=== PATIENT | female | born 1985 | race Caucasian/White ===

== ENCOUNTER 2016-08-19 10:15 | Day surgery (SDC) | payer OTHER ==
[2016-08-19] MEDS ORDERED: DEXAMETHASONE SOD PHOS INJ 10 MG/1 ML VIAL ONE (11:30)
[2016-08-19] MEDS ORDERED: ONDANSETRON HCL INJ/PF 4 MG/2 ML SDV ONE (11:30)
[2016-08-19] MEDS ORDERED: FENTANYL CITRATE INJ/PF 100 MCG/2 ML AMPUL ONE ×2 (11:30)
[2016-08-19] MEDS ORDERED: MIDAZOLAM 2 MG/2 ML INJ ONE (11:30)
[2016-08-19] MEDS ORDERED: CARBOXYMETHYLCELLULOSE SOD 0.5% 0.4 ML DROPERETTE ONE (11:30)
[2016-08-19] MEDS ORDERED: LIDOCAINE 2% INJ-PF (20 MG/ML) 10 ML AMPUL ONE (11:30)
[2016-08-19] MEDS ORDERED: ROCURONIUM BROMIDE INJ 50 MG/5 ML VIAL IV ONE (11:31)
[2016-08-19] MEDS ORDERED: PROPOFOL INJ 200 MG/20 ML VIAL IV ONE (11:31)
[2016-08-19] MEDS ORDERED: SUCCINYLCHOLINE CHLORIDE INJ 200 MG/10 ML VIAL ONE (11:31)
[2016-08-19] MEDS ORDERED: DIPHENHYDRAMINE HCL 50 MG/ML VIAL ONE (11:32)
[2016-08-19] MEDS: LIDOCAINE 1%/EPINEPHRINE INJ 20 ML VIAL ONE ×2 (11:52)
[2016-08-19] MEDS: OXYMETAZOLINE HCL 0.05% NASAL SPRAY 15 ML BOTTLE ONE ×2 (11:52)
[2016-08-19] MEDS ORDERED: OXYCODONE-ACETAMINOPHEN 5-325 MG TABLET ONE (13:10)
--- NOTE | 2016-08-19 13:55 | [facility] OPERATIVE REPORT E ---
[facility] Oper[facility] Report NAME: BALTAZAR JUAREZ AGE: 31Y DATE OF SURGERY: 08/19/2016 ROOM: PREOPERATIVE DIAGNOSES: 1. Left nasal septal deviation. 2. Bilateral inferior turbinate hypertrophy. POSTOPERATIVE DIAGNOSES: 1. Left nasal septal deviation. 2. Bilateral inferior turbinate hypertrophy. PROCEDURES: 1. Septoplasty. 2. Bilateral mucus reduction of the inferior turbinates. 3. Bilateral therapeutic outfracture of the inferior turbinates. SURGEON: BEBETO RODRIGUEZ M.D. ANESTHESIA: General endotracheal. ESTIMATED BLOOD LOSS: 30 mL. COMPLICATIONS: None. FINDINGS: 1. Left-sided mid septum broad deviation narrowing greater than 50% of the nasal passages in contact in the inferior turbinate. 2. Right greater than left compensatory inferior turbinate hypertrophy. INDICATIONS FOR PROCEDURE: A 31-year-old woman with longstanding left-sided nasal obstruction that was nontraumatic in nature and has been refractory to a long course of conservative and medical management. PROCEDURE IN DETAIL: The patient was met in the preoperative holding area where questions were answered and consent was verified. She was then brought back to the operating room and placed supine on the operating room table and general endotracheal anesthesia was induced without difficulty. The nasal cavities were decongested with oxymetazoline and 1% lidocaine 1:100,000 epinephrine was infiltrated on both sides of the nasal septum and the face of the inferior turbinates. She was prepped and draped in standard fashion and a preoperative timeout was performed. A hemitransfixion incision was carried out in the cartilage of the septum, which favored a predominantly rightward location. Bilateral submucoperichondrial flaps were elevated from the caudal edge. The septal cartilage was incised and a rectangular piece of cartilage was resected using a swivel knife. A residual left-sided maxillary crest bur was isolated and resected, mostly using an elevator. The dorsal aspect of the septum was scored and a directed resection was carried out at the area that opposed the left internal nasal valve. These *------* to the left-sided nasal cavity. The resected cartilage was morselized and replaced and returned to submucoperichondrial flaps, which were then reapproximated with a quilting stitch of fast gut suture. The hemitransfixion incision was closed with chromic suture. The inferior turbinate *------* was then carried out by incising the anterior aspect of the turbinate, dissecting the submucosal tunnel over the turbinate bone, and carried out a submucous reduction using a 2.9 mm turbinate microdebrider blade from posterior to anterior direction. The turbinate bones were then outfractured with a [place] elevator. The nasal cavity and nasopharynx were then suctioned and [place] splints were placed on each nasal cavity and secured anteriorly with Prolene. She was turned over to the anesthesia team for reversal and extubation. She tolerated the procedure well. DICTATING PHYSICIAN: BEBETO RODRIGUEZ M.D. [id number] PHY#: [id number] ID: [id number] JOB#: [id number] ACCT: [id number] cc:BEBETO RODRIGUEZ M.D. >
== END 2016-08-19 14:25 | disposition home or self-care (01) ==
LOC: SC 10:15
PROVIDERS: ATTEND Otolaryngology
PROC: 09TL8ZZ Resection of Nasal Turbinate, Via Natural or Artificial Opening Endoscopic (ICD-10-PCS; 2016-08-19)
PROC: 09BM4ZZ Excision of Nasal Septum, Percutaneous Endoscopic Approach (ICD-10-PCS; principal; 2016-08-19 12:35)
DX: J34.2 Deviated nasal septum (principal); J34.3 Hypertrophy of nasal turbinates; F17.210 Nicotine dependence, cigarettes, uncomplicated; Z88.0 Allergy status to penicillin; Z79.899 Other long term (current) drug therapy
CPT/HCPCS: 30520; 30140; J2250; J3490 ×5; J1200; J3010; J0330; J2405; J2704; J1100; 160